=== PATIENT | female | born 1970 | race Caucasian/White ===

== ENCOUNTER 2023-01-30 13:57 | Observation (INO) | payer OTHER ==
[2023-01-30] MEDS ORDERED: ACETAMINOPHEN TAB 500 MG TAB PO STA (15:13)
[2023-01-30] MEDS ORDERED: SODIUM CHLORIDE 0.9% 500 ML 500 ML IV STA (15:13)
--- NOTE | 2023-01-30 15:18 | ED ---
General Adult HPI - General Source: patient Mode of arrival: ambulatory Limitations: no limitations <Jian Ferrer - Last Filed: 01/30/23 16:01> <Gen Perez - Last Filed: 01/30/23 23:40> - General Chief complaint: Upper Respiratory Infection Stated complaint: cough Time Seen by Provider: 01/30/23 15:03 - History of Present Illness Initial comments: 52-year-old woman presents to ED with chief complaint of cough. Patient states for the last 6 days has had URI symptoms. States that she has had cough inter mittently productive with green/brown sputum, sore throat, runny nose, congestion, headache, and diarrhea. States that she has been unable take OTC medications due to difficulties swallowing. However notes that she took a [place] earlier with relief of headache. No other complaints. (Jian Ferrer) This 52-year-old female presents with a complaint of a cough as well as some difficulty in breathing. She's had some moderate nasal congestion as well. Symptoms started approximately 1 week ago. She relates that she's been bringing up a significant amount of yellowish brownish production. She also relates that she's had nausea, vomiting, and diarrhea. She has not been able to keep any food or fluid down recently. The symptoms also started approximately 1 week ago. She states that she feels very weak and can barely walk across a room. She states that this is the most 6 she is ever felt in her entire life. She denies any previous similar incidents. She denies any known sick contacts. No other complaints or modifying factors. She denies any history of anemia. There is no loud in her stool or black tarry stools. (Gen Perez) - Related Data Home Medications Medication Instructions Recorded Confirmed Atorvastatin [Lipitor] 10 mg PO HS 01/30/23 01/30/23 Biotin 5 mg PO DAILY 01/30/23 01/30/23 Celecoxib [CeleBREX] 200 mg PO DAILY 01/30/23 01/30/23 Diclofenac Sodium [Voltaren] 75 mg PO BID-W/MEALS 01/30/23 01/30/23 Galcanezumab-Gnlm [Emgality Pen] 120 mg SQ Q30D 01/30/23 01/30/23 HYDROcodone/APAP 10-325MG [[place] 1 tab PO QID PRN 01/30/23 01/30/23 10-325] Lansoprazole [Prevacid] 15 mg PO DAILY 01/30/23 01/30/23 Metoprolol Succinate (ER) [Toprol 25 mg PO DAILY 01/30/23 01/30/23 Xl] Topiramate [Topamax] See Taper PO DIRECTED 01/30/23 01/30/23 tiZANidine [Zanaflex] 4 mg PO TID PRN 01/30/23 01/30/23 Allergies Allergy/AdvReac Type Severity Reaction Status Date / Time amoxicillin [From Amoxil] Allergy Itching Verified 01/30/23 19:13 Penicillins Allergy Itching Verified 01/30/23 19:13 Review of Systems ROS Other: All systems not noted in ROS Statement are negative. <Jian Ferrer - Last Filed: 01/30/23 16:01> ROS Other: All systems not noted in ROS Statement are negative. <Gen Perez - Last Filed: 01/30/23 23:40> ROS Statement: Those systems with pertinent positive or pertinent negative responses have been documented in the HPI. Past Medical History Past Medical History: Hypertension Additional Past Medical History / Comment(s): chronic back pain, chronic headaches History of Any Multi-Drug Resistant Organisms: None Reported Past Surgical History: Bariatric Surgery, Section, Cholecystectomy Past Psychological History: No Psychological Hx Reported Smoking Status: Former smoker Past Alcohol Use History: None Reported Past Drug Use History: Marijuana <Jian Ferrer - Last Filed: 01/30/23 16:01> General Exam Limitations: no limitations General appearance: alert, in no apparent distress Head exam: Present: atraumatic, normocephalic ENT exam: Present: mucous membranes moist, other (No significant tonsillar swell ing or exudate present. TMs clear and intact bilaterally.) Neck exam: Present: other (No significant lymphadenopathy.) Respiratory exam: Present: wheezes (Inspiratory wheezes in bilateral lung har[place]. Otherwise respiratory rate regular without accessory muscle use.) Cardiovascular Exam: Present: regular rate Neurological exam: Present: alert, oriented X3 Psychiatric exam: Present: normal affect, normal mood Skin exam: Present: warm, dry <Jian Ferrer - Last Filed: 01/30/23 16:01> <Gen Perez - Last Filed: 01/30/23 23:40> - General Exam Comments Initial Comments: GENERAL: The patient is well nourished and dehydrated. VITAL SIGNS: Heart rate, blood pressure, respiratory rate reviewed as recorded in nurse's notes. EYES: Pupils are round and reactive. Extraocular movements are intact. No conjunctival / lid redness or swelling. ENT: No external evidence of injury, swelling, or ecchymosis. Airway is patent. Throat is clear. Mucous membranes are dry. NECK: Nontender. No swelling or evidence of injury. No subcutaneous emphysema. Trachea is midline. No thyroid mass. HEART: Regular rate and rhythm. Good peripheral pulses. LUNGS/CHEST: Occasional wheezing noted bilaterally. No ecchymosis, subcutaneous emphysema, or tenderness. ABDOMEN: Abdomen soft without tenderness. No palpable masses or organomegaly. No peritoneal signs. No abdominal wall swelling or ecchymosis. EXTREMITIES: No extremity tenderness. Normal muscle tone and function. No thoracolumbar tenderness. NEUROLOGIC: Sensation is grossly intact. Cranial nerve exam reveals face is symmetrical, tongue is midline, speech is clear. SKIN: No abrasions or ecchymosis is noted. No induration or masses noted. PSYCHIATRIC: Alert and oriented. Appropriate behavior and judgment. (Gen Perez) Course Vital Signs 01/30/23 01/30/23 01/30/23 14:13 15:20 17:49 Temperature 99.9 F H 98.8 F Pulse Rate 80 Respiratory 20 16 Rate Blood Pressure 140/98 O2 Sat by Pulse 95 Oximetry 01/30/23 01/30/23 01/30/23 18:53 19:04 20:23 Temperature Pulse Rate 80 80 76 Respiratory 16 Rate Blood Pressure 176/79 O2 Sat by Pulse 99 Oximetry 01/30/23 20:34 Temperature 98.2 F Pulse Rate 76 Respiratory 16 Rate Blood Pressure 172/76 O2 Sat by Pulse 97 Oximetry Medical Decision Making <Jian Ferrer - Last Filed: 01/30/23 16:01> - Lab Data Result diagrams: 01/30/23 15:40 01/30/23 15:40 <Gen Perez - Last Filed: 01/30/23 23:40> - Medical Decision Making Was pt. sent in by a medical professional or institution (, PA, CLOTH WORKER, urgent care, hospital, or long term...) When possible be specific @ -[No] Did you speak to anyone other than the patient for history (EMS, parent, family, police, friend...)? What history was obtained from this source @ -[No] Did you review nursing and triage notes (agree or disagree)? Why? @ -[I reviewed and agree with nursing and triage notes] Were old charts reviewed (outside hosp., previous admission, EMS record, old EKG, old radiological studies, urgent care reports/EKG's, long term records)? Report findings @ -[No old charts were reviewed] Differential Diagnosis (chest pain, altered mental status, abdominal pain women, abdominal pain men, vaginal bleeding, weakness, fever, dyspnea, syncope, h eadache, dizziness, GI bleed, back pain, seizure, CVA, palpatations, mental health, musculoskeletal)? @ -Differential Fever: Pneumonia, viral URI, endocarditis, myocarditis, pericarditis, otitis, sinusitis, peritonsillar Abscess, retropharyngeal Abscess, epiglottitis, peritonitis, appendicitis, Hali cystitis, diverticulitis, hepatitis, colitis, UTI, PID, TOA, pyelonephritis, prostatitis, epididymitis, meningitis, encephalitis, pulmonary embolism, CVA, thyroid storm, pancreatitis, adrenal crisis, cavernous sinus thrombosis, this is not meant to be an all-inclusive list. EKG interpreted by me (3pts min.). @ -[As above] X-rays interpreted by me (1pt min.). @ -X-ray showed no acute process. CT interpreted by me (1pt min.). @ -[None done] U/S interpreted by me (1pt. min.). @ -[None done] What testing was considered but not performed or refused? (CT, X-rays, U/S, labs)? Why? @ -[None] What meds were considered but not given or refused? Why? @ -[None] Did you discuss the management of the patient with other professionals (professionals i.e. , PA, CLOTH WORKER, lab, RT, psych nurse, manager social work, clinical nurse reviewer, teacher, executive vice president and chief financial officer, assistant program manager)? Give summary @ -[No] Was smoking cessation discussed for >3mins.? @ -[No] Was critical care preformed (if so, how long)? @ -[No] Were there social determinants of health that impacted care today? How? (Homelessness, low income, unemployed, alcoholism, drug addiction, transportation, low edu. Level, literacy, decrease access to med. care, senior living, rehab)? @ -[No] Was there de-escalation of care discussed even if they declined (Discuss DNR or withdrawal of care, Hospice)? DNR status @ -[No] What co-morbidities impacted this encounter? (DM, HTN, Smoking, COPD, CAD, Cancer, CVA, ARF, Chemo, Hep., AIDS, mental health diagnosis, sleep apnea, morbid obesity)? @ -[None] (Jian Ferrer) The patient was seen and examined. All diagnostics were reviewed. The patient received IV fluids. She also received Zofran intravenously. DuoNeb breathing treatment is given. Solu-Medrol was given intravenously as well. Levaquin is given intravenously. Chest x-ray does not show any acute process per my interpretation. The laboratory shows evidence of anemia with hemoglobin at 9. The CO2 is low at 14 consistent with significant dehydration. Additional IV fluids are given. It is felt as though she likely does have a bronchitis as we ll as sinusitis and Levaquin is given intravenously. It is felt as though she is significantly dehydrated and would benefit from admission to the hospital for further treatment. She is agreeable with this plan. Case is discussed with internal medicine and they also are agreeable with the mission as an observation. (Gen Perez) - Lab Data Lab Results 01/30/23 01/30/23 01/30/23 Range/Units 15:40 15:40 15:40 WBC 7.7 (3.8-10.6) k/uL RBC 4.17 (3.80-5.40) m/uL Hgb 9.1 L (11.4-16.0) gm/dL Hct 30.5 L (34.0-46.0) % MCV 73.0 L (80.0-100.0) fL MCH 21.7 L (25.0-35.0) pg MCHC 29.8 L (31.0-37.0) g/dL RDW 19.2 H (11.5-15.5) % Plt Count 398 (150-450) k/uL MPV 9.0 Neutrophils % (Manual) 71 % Band Neuts % (Manual) 1 % Lymphocytes % (Manual) 18 % Monocytes % (Manual) 9 % Eosinophils % (Manual) 1 % Neutrophils # (Manual) 5.50 (1.3-7.7) k/uL Lymphocytes # (Manual) 1.39 (1.0-4.8) k/uL Monocytes # (Manual) 0.69 (0-1.0) k/uL Eosinophils # (Manual) 0.08 (0-0.7) k/uL Nucleated RBCs 0 (0-0) /100 WBC Manual Slide Review Performed Polychromasia Present Hypochromasia Marked Poikilocytosis Slight Anisocytosis Slight Microcytosis Moderate Sodium 138 (137-145) mmol/L Potassium 4.8 (3.5-5.1) mmol/L Chloride 108 H (98-107) mmol/L Carbon Dioxide 14 L (22-30) mmol/L Anion Gap 16 mmol/L BUN 14 (7-17) mg/dL Creatinine 0.67 (0.52-1.04) mg/dL Est GFR (CKD-EPI)AfAm >90 (>60 ml/min/1.73 sqM) Est GFR (CKD-EPI)NonAf >90 (>60 ml/min/1.73 sqM) Glucose 98 (74-99) mg/dL Calcium 8.8 (8.4-10.2) mg/dL Urine Color Light Yellow Urine Appearance Clear (Clear) Urine pH 7.0 (5.0-8.0) Ur Specific [place] 1.016 (1.001-1.035) Urine Protein Trace H (Negative) Urine Glucose (UA) Negative (Negative) Urine Ketones 3+ H (Negative) Urine Blood Negative (Negative) Urine Nitrite Negative (Negative) Urine Bilirubin Negative (Negative) Urine Urobilinogen <2.0 (<2.0) mg/dL Ur Leukocyte Esterase Negative (Negative) Influenza Type A (PCR) (Not Detectd) Influenza Type B (PCR) (Not Detectd) RSV (PCR) (Not Detectd) SARS-CoV-2 (PCR) (Not Detectd) 01/30/23 Range/Units 15:44 WBC (3.8-10.6) k/uL RBC (3.80-5.40) m/uL Hgb (11.4-16.0) gm/dL Hct (34.0-46.0) % MCV (80.0-100.0) fL MCH (25.0-35.0) pg MCHC (31.0-37.0) g/dL RDW (11.5-15.5) % Plt Count (150-450) k/uL MPV Neutrophils % (Manual) % Band Neuts % (Manual) % Lymphocytes % (Manual) % Monocytes % (Manual) % Eosinophils % (Manual) % Neutrophils # (Manual) (1.3-7.7) k/uL Lymphocytes # (Manual) (1.0-4.8) k/uL Monocytes # (Manual) (0-1.0) k/uL Eosinophils # (Manual) (0-0.7) k/uL Nucleated RBCs (0-0) /100 WBC Manual Slide Review Polychromasia Hypochromasia Poikilocytosis Anisocytosis Microcytosis Sodium (137-145) mmol/L Potassium (3.5-5.1) mmol/L Chloride (98-107) mmol/L Carbon Dioxide (22-30) mmol/L Anion Gap mmol/L BUN (7-17) mg/dL Creatinine (0.52-1.04) mg/dL Est GFR (CKD-EPI)AfAm (>60 ml/min/1.73 sqM) Est GFR (CKD-EPI)NonAf (>60 ml/min/1.73 sqM) Glucose (74-99) mg/dL Calcium (8.4-10.2) mg/dL Urine Color Urine Appearance (Clear) Urine pH (5.0-8.0) Ur Specific [place] (1.001-1.035) Urine Protein (Negative) Urine Glucose (UA) (Negative) Urine Ketones (Negative) Urine Blood (Negative) Urine Nitrite (Negative) Urine Bilirubin (Negative) Urine Urobilinogen (<2.0) mg/dL Ur Leukocyte Esterase (Negative) Influenza Type A (PCR) Not Detected (Not Detectd) Influenza Type B (PCR) Not Detected (Not Detectd) RSV (PCR) Not Detected (Not Detectd) SARS-CoV-2 (PCR) Not Detected (Not Detectd) Disposition <Jian Ferrer - Last Filed: 01/30/23 16:01> Is patient prescribed a controlled substance at d/c from ED?: No Time of Disposition: 18:12 Decision Date: 01/30/23 Decision Time: 18:12 <Gen Perez - Last Filed: 01/30/23 23:40> Clinical Impression: Dehydration, Anemia, Nausea and vomiting, Weakness, Diarrhea, Bronchitis, Sinusitis Disposition: ADMITTED IP TO THIS HOSP Condition: Fair
--- NOTE | 2023-01-30 15:57 | XR ---
EXAMINATION TYPE: XR chest 2V DATE OF EXAM: 01/30/2023 COMPARISON: None HISTORY: 52-year-old female with cough TECHNIQUE: PA and lateral views FINDINGS: Slightly low lung volumes and crowded vascular markings. Interstitial prominence is a chronic appeara nce. Heart upper limits of normal in size. Aorta and pulmonary vasculature within normal limits. No c onsolidation or pleural effusion. IMPRESSION: No definite acute process. Some hypoventilatory changes.
[2023-01-30 16:10] LABS: Anisocytosis Slight; HCT 30.5 % (34.0-46.0); HGB 9.1 gm/dL (11.4-16.0); Hypochromasia Marked; MCH 21.7 pg (25.0-35.0); MCHC 29.8 g/dL (31.0-37.0); Microcytosis Moderate; Platelet Count 398 k/uL (150-450); Poikilocytosis Slight; RBC 4.17 m/uL (3.80-5.40); RDW 19.2 % (11.5-15.5); WBC 7.7 k/uL (3.8-10.6)
[2023-01-30 16:11] LABS: African American GFR (CKD) >90 (>60 ml/min/1.73 sqM); Anion Gap 16 mmol/L; Blood Urea Nitrogen 14 mg/dL (7-17); Calcium 8.8 mg/dL (8.4-10.2); Carbon Dioxide 14 mmol/L (22-30); Chloride 108 mmol/L (98-107); Non-African American GFR(CKD) >90 (>60 ml/min/1.73 sqM); Potassium 4.8 mmol/L (3.5-5.1); Sodium 138 mmol/L (137-145)
[2023-01-30 16:13] LABS: Glucose 98 mg/dL (74-99)
[2023-01-30 16:35] LABS: Band Neutrophils % 1 %; Eosinophils # (M) 0.08 k/uL (0-0.7); Lymphocytes # (M) 1.39 k/uL (1.0-4.8); Monocytes # (M) 0.69 k/uL (0-1.0); Neutrophils % (M) 71 %; Nucleated Red Blood Cells 0 /100 WBC (0-0); Total Cells Counted 100
[2023-01-30 16:36] LABS: Polychromasia Present
[2023-01-30] MEDS ORDERED: SODIUM CHLORIDE 0.9% 1,000 ML IV STA (17:57)
[2023-01-30] MEDS ORDERED: methylPREDNISolone SOD SUCCI 125 MG/2 ML VIAL IV STA (18:09)
[2023-01-30] MEDS ORDERED: IPRATROPIUM-ALBUTEROL 3 ML NEB INHALATION STA (18:09)
[2023-01-30] MEDS ORDERED: LEVOFLOXACIN 750MG-D5W PMX 750 MG in DEXTROSE/WATER 1 150ML.BAG IVPB STA (18:10)
[2023-01-30 18:31] LABS: Appearance,Urine Clear (Clear); Bilirubin,Urine Negative (Negative); Blood,Urine Negative (Negative); Color,Urine Light Yellow; Glucose,Urine (UA) Negative (Negative); Ketones,Urine 3+ (Negative); Leukocyte Esterase,Urine Negative (Negative); Nitrite,Urine Negative (Negative); Protein,Urine Trace (Negative); Specific Gravity,Urine 1.016 (1.001-1.035); Urobilinogen,Urine <2.0 mg/dL (<2.0)
[2023-01-30] MEDS ORDERED: ACETAMINOPHEN TAB 325 MG TAB PO PRN (18:57)
[2023-01-30] MEDS ORDERED: METOCLOPRAMIDE 5 MG/ML 2 ML VIAL IVP PRN (19:01)
[2023-01-30] MEDS: PANTOPRAZOLE 40 MG/10 ML VIAL IV SCH (19:56)
[2023-01-30] MEDS: ENOXAPARIN 40 MG/0.4 ML SYRINGE SQ SCH (21:22)
[2023-01-30] MEDS: SODIUM CHLORIDE 0.9% 1,000 ML IV SCH (21:22)
[2023-01-30] MEDS ORDERED: methylPREDNISolone SOD SUCCI 125 MG/2 ML VIAL IV SCH (22:00)
[2023-01-30] MEDS: HYDROcodone/APAP 10-325MG 1 EACH TAB PO PRN (22:56)
[2023-01-30] MEDS: IPRATROPIUM-ALBUTEROL 3 ML NEB INHALATION SCH ×3 (23:13→23:17)
--- NOTE | 2023-01-31 00:32 | P.HPIM ---
History of Present Illness H&P Date: 01/30/23 The patient is a 52-year-old female with a PMH of hypertension and hyperlipidemia who presents to the emergency room with complaints of cough, sinus congestion, vomiting, and diarrhea. The patient reports that her symptoms initially started with sore throat and cough roughly one week ago. She then developed nausea with vomiting and diarrhea 2 days later which was persistent and debilitating. She reports being unable to tolerate any food or liquid as a result. The patient states that her sore throat and nausea has essentially resolved with the past 2-3 days but she continues to have loose bowel movements 2-3 per day. She also reports having minimal cough which is nonproductive. She states feeling really fatigued due to her decreased oral intake and not having the energy to do her ADLs. She denied experiencing fever, chest pain, shortness of breath. Denied abdominal pain. Denied gross abdominal bleeding or melena, or bleeding ulcer. Chest x-ray in the emergency room was unremarkable. Laboratory evaluation was remarkable for hemoglobin 9.1 with MCV 73, CO2 14, anion gap 16, with 3+ ketones on the UA. ED documentation reviewed and case discussed with ED provider. Review of systems: Pertinent positives and negatives as discussed in HPI, a complete review of systems was performed and all other systems are negative. Physical examination: Vital signs reviewed General: non toxic, no distress, appears at stated age, obese Derm: no unusual rashes/lesions, warm Head: atraumatic, normocephalic, symmetric Eyes: EOMI, no lid lag, anicteric sclera, pupils equal round reactive to light ENT: Nose and ears atraumatic Neck: No cervical lymphadenopathy, trachea midline, supple Mouth: no lip lesion, mucus membranes moist Cardiovascular: S1S2 reg, no murmur, positive dorsalis pedis pulse bilateral, no edema Lungs: CTA bilateral, no rhonchi, no rales, no accessory muscle use Abdominal: soft, nontender to palpation, no guarding Ext: muscle strength 5 out of 5 in all 4 extremities grossly, no gross muscle atrophy, no contractures, Neuro: CN II-XI grossly intact, no gross focal neuro deficits Psych: Alert, oriented, appropriate affect Assessment: Sore throat, diarrhea, vomiting, suspect secondary to viral syndrome, improving High anion gap metabolic acidosis likely secondary to starvation ketosis Microcytic anemia Imaging: Chest x-ray in the emergency room was unremarkable. Data Review: Laboratory evaluation was remarkable for hemoglobin 9.1 with MCV 73, CO2 14, anion gap 16, with 3+ ketones on the UA. Plan: Conservative management with IV fluids. Clear liquid diet Obtain fecal leukocytes Monitor BMP for resolution of acidosis Patient denying bleeding. No prior CBC available for comparison. Order iron panel DVT prophylaxis: Lovenox The patient is admitted with an anticipated less than 2 midnight stay for evaluation of diarrhea CODE STATUS: Full Code Discussed with: Patient Anticipated discharge place: Home Past Medical History Past Medical History: Hypertension Additional Past Medical History / Comment(s): chronic back pain, chronic headaches History of Any Multi-Drug Resistant Organisms: None Reported Past Surgical History: Bariatric Surgery, Section, Cholecystectomy Past Psychological History: No Psychological Hx Reported Smoking Status: Former smoker Past Alcohol Use History: None Reported Past Drug Use History: Marijuana - Past Family History Mother Family Medical History: Diabetes Mellitus Medications and Allergies Home Medications Medication Instructions Recorded Confirmed Type Atorvastatin [Lipitor] 10 mg PO HS 01/30/23 01/30/23 History Biotin 5 mg PO DAILY 01/30/23 01/30/23 History Celecoxib [CeleBREX] 200 mg PO DAILY 01/30/23 01/30/23 History Diclofenac Sodium [Voltaren] 75 mg PO BID-W/MEALS 01/30/23 01/30/23 History Galcanezumab-Gnlm [Emgality Pen] 120 mg SQ Q30D 01/30/23 01/30/23 History HYDROcodone/APAP 10-325MG [[place] 1 tab PO QID PRN 01/30/23 01/30/23 History 10-325] Lansoprazole [Prevacid] 15 mg PO DAILY 01/30/23 01/30/23 History Metoprolol Succinate (ER) [Toprol 25 mg PO DAILY 01/30/23 01/30/23 History Xl] Topiramate [Topamax] See Taper PO DIRECTED 01/30/23 01/30/23 History tiZANidine [Zanaflex] 4 mg PO TID PRN 01/30/23 01/30/23 History Allergies Allergy/AdvReac Type Severity Reaction Status Date / Time amoxicillin [From Amoxil] Allergy Itching Verified 01/30/23 19:13 Penicillins Allergy Itching Verified 01/30/23 19:13 Physical Exam Vitals: Vital Signs Temp Pulse Resp BP Pulse Ox 01/30/23 20:34 98.2 F 76 16 172/76 97 01/30/23 20:23 76 16 176/79 99 01/30/23 19:04 80 01/30/23 18:53 80 01/30/23 17:49 98.8 F 01/30/23 15:20 16 01/30/23 14:13 99.9 F H 80 20 140/98 95 Intake and Output 01/30/23 01/30/23 01/30/23 06:59 14:59 22:59 Other: Weight 104.326 kg Results CBC & Chem 7: 01/30/23 15:40 01/30/23 15:40 Labs: Abnormal Lab Results - Last 24 Hours (Table) 01/30/23 01/30/23 01/30/23 Range/Units 15:40 15:40 15:40 Hgb 9.1 L (11.4-16.0) gm/dL Hct 30.5 L (34.0-46.0) % MCV 73.0 L (80.0-100.0) fL MCH 21.7 L (25.0-35.0) pg MCHC 29.8 L (31.0-37.0) g/dL RDW 19.2 H (11.5-15.5) % Chloride 108 H (98-107) mmol/L Carbon Dioxide 14 L (22-30) mmol/L Urine Protein Trace H (Negative) Urine Ketones 3+ H (Negative)
[2023-01-31] MEDS: SODIUM CHLORIDE 0.9% 1,000 ML IV SCH ×3 (03:19→18:18)
[2023-01-31 06:54] LABS: Anisocytosis Slight; Basophils % (A) 0 %; Eosinophils % (A) 0 %; HCT 33.2 % (34.0-46.0); HGB 9.5 gm/dL (11.4-16.0); Hypochromasia Marked; Lymphocytes # (A) 1.1 k/uL (1.0-4.8); Lymphocytes % (A) 15 %; MCH 22.1 pg (25.0-35.0); MCHC 28.6 g/dL (31.0-37.0); Mean Platelet Volume 7.7; Microcytosis Moderate; Monocytes # (A) 0.2 k/uL (0-1.0); Monocytes % (A) 2 %; Neutrophils # (A) 6.1 k/uL (1.3-7.7); Neutrophils % (A) 82 %; Platelet Count 459 k/uL (150-450); Poikilocytosis Slight; RBC 4.31 m/uL (3.80-5.40); RDW 19.4 % (11.5-15.5); WBC 7.5 k/uL (3.8-10.6)
[2023-01-31 07:03] LABS: ALT 53 U/L (4-34); AST 43 U/L (14-36); African American GFR (CKD) >90 (>60 ml/min/1.73 sqM); Albumin 4.4 g/dL (3.5-5.0); Albumin/Globulin Ratio 1.1; Alkaline Phosphatase 159 U/L (38-126); Anion Gap 18 mmol/L; Blood Urea Nitrogen 9 mg/dL (7-17); Carbon Dioxide 11 mmol/L (22-30); Chloride 112 mmol/L (98-107); Glucose 212 mg/dL (74-99); Non-African American GFR(CKD) >90 (>60 ml/min/1.73 sqM); Potassium 4.3 mmol/L (3.5-5.1); Sodium 141 mmol/L (137-145); Total Bilirubin 0.3 mg/dL (0.2-1.3); Total Protein 8.4 g/dL (6.3-8.2)
[2023-01-31] MEDS: ENOXAPARIN 40 MG/0.4 ML SYRINGE SQ SCH (08:06)
[2023-01-31] MEDS: PANTOPRAZOLE 40 MG/10 ML VIAL IV SCH (08:06)
[2023-01-31] MEDS ORDERED: LEVOFLOXACIN 750MG-D5W PMX 750 MG in DEXTROSE/WATER 1 150ML.BAG IVPB SCH (09:00)
[2023-01-31] MEDS: ONDANSETRON 4 MG/2 ML VIAL IVP PRN (11:23)
--- NOTE | 2023-01-31 16:30 | P.PN ---
Subjective Progress Note Date: 01/31/23 Pt c/o some nausea. Stil lhas poor appetite. Gen: awake, alert HEENT: normocephalic, atraumatic, good hearing acuity, moist mucous membranes Resp: good air exchange, breathing comfortably with no accessory muscle use CVS: good distal perfusion x 4, GI: soft, NTTP, ND : no SPT, no CVAT, medrano catheter not present MSK: no pitting edema, no clubbing Neuro: non-focal, moving all extremities Psych: cooperative, euthymic mood Hospital course: The patient is a 52-year-old female with a PMH of hypertension and hyperlipidemia who presents to the emergency room with complaints of cough, sinus congestion, vomiting, and diarrhea. Chest x-ray in the emergency room was unremarkable. Laboratory evaluation was remarkable for hemoglobin 9.1 with MCV 73, CO2 14, anion gap 16, with 3+ ketones on the UA. Patient was admitted to observation and started on IV fluids for supportive care. She was also started on levofloxacin which was discontinued on day 2 of hospitalization. Assessment: Sore throat, diarrhea, vomiting, suspect secondary to viral syndrome, improving High anion gap metabolic acidosis likely secondary to starvation ketosis Microcytic anemia Plan: Today, patient is afebrile, 126/74, heart rate 74, 98% on room air. CBC demonstrates anemia of hemoglobin down to 9.5, thrombocytosis to 459 Chloride is 112, bicarb is 11 AST is 43, ALT is 53, alkaline phosphatase is 159, total protein is 8.4 Urine Legionella antigen was negative Continue patient on IV fluids at 130 mL per hour of normal saline Advance diet as tolerated Zofran 4 mg every 4 hours when necessary for nausea Patient is full code Objective - Vital Signs Vital signs: Vital Signs Temp 98.4 F 01/31/23 15:00 Pulse 74 01/31/23 15:00 Resp 16 01/31/23 15:00 BP 126/74 01/31/23 15:00 Pulse Ox 98 01/31/23 15:00 FiO2 Intake & Output 01/30/23 01/31/23 01/31/23 18:59 06:59 18:59 Weight 104.326 kg 104.326 kg Other: Voiding Method Toilet # Voids 1 3 - Labs CBC & Chem 7: 01/31/23 05:58 01/31/23 05:58 Labs: Abnormal Lab Results - Last 24 Hours (Table) 01/30/23 01/31/23 01/31/23 Range/Units 15:40 05:58 05:58 Hgb 9.5 L (11.4-16.0) gm/dL Hct 33.2 L (34.0-46.0) % MCV 77.0 L (80.0-100.0) fL MCH 22.1 L (25.0-35.0) pg MCHC 28.6 L (31.0-37.0) g/dL RDW 19.4 H (11.5-15.5) % Plt Count 459 H (150-450) k/uL Chloride 112 H (98-107) mmol/L Carbon Dioxide 11 L (22-30) mmol/L Glucose 212 H (74-99) mg/dL AST 43 H (14-36) U/L ALT 53 H (4-34) U/L Alkaline Phosphatase 159 H (38-126) U/L Total Protein 8.4 H (6.3-8.2) g/dL Urine Protein Trace H (Negative) Urine Ketones 3+ H (Negative)
[2023-01-31 17:37] LABS: Iron 20 UG/DL (50-170); Total Iron Binding Capacity 465 UG/DL (228-460)
[2023-01-31] MEDS: HYDROcodone/APAP 10-325MG 1 EACH TAB PO PRN (22:50)
[2023-02-01] MEDS: SODIUM CHLORIDE 0.9% 1,000 ML IV SCH ×2 (01:02→09:29)
[2023-02-01] MEDS: HYDROcodone/APAP 10-325MG 1 EACH TAB PO PRN ×2 (06:18→22:54)
[2023-02-01] MEDS: ENOXAPARIN 40 MG/0.4 ML SYRINGE SQ SCH (09:26)
[2023-02-01] MEDS: PANTOPRAZOLE 40 MG/10 ML VIAL IV SCH (09:26)
[2023-02-01] MEDS ORDERED: BENZOCAINE/MENTHOL LOZENG 1 EACH LOZENGE MUCOUS MEM PRN (14:29)
--- NOTE | 2023-02-01 14:42 | P.PN ---
Subjective Progress Note Date: 02/01/23 Pt c/o some nausea. Still has poor appetite. She complains of sore throat. Has not eaten much since admission. Gen: awake, alert HEENT: normocephalic, atraumatic, good hearing acuity, moist mucous membranes Resp: good air exchange, breathing comfortably with no accessory muscle use CVS: good distal perfusion x 4 GI: soft, NTTP, ND MSK: no pitting edema, no clubbing Neuro: non-focal, moving all extremities Psych: cooperative, euthymic mood Hospital course: The patient is a 52-year-old female with a PMH of hypertension and hyperlipidemia who presents to the emergency room with complaints of cough, sinus congestion, vomiting, and diarrhea. Chest x-ray in the emergency room was unremarkable. Laboratory evaluation was remarkable for hemoglobin 9.1 with MCV 73, CO2 14, anion gap 16, with 3+ ketones on the UA. Patient was admitted to observation and started on IV fluids for supportive care. She was also started on levofloxacin which was discontinued on day 2 of hospitalization. Assessment: Sore throat, diarrhea, vomiting, suspect secondary to viral syndrome, improving High anion gap metabolic acidosis likely secondary to starvation ketosis Microcytic anemia Plan: Check group A step Switch NS to D5 NS which should help with acidosis Repeat BMP tomorrow morning Advance diet as tolerated Zofran 4 mg every 4 hours when necessary for nausea Anticipate DC in 1-2 days. Patient is full code Objective - Vital Signs Vital signs: Vital Signs Temp 98.1 F 02/01/23 14:11 Pulse 75 02/01/23 14:11 Resp 16 02/01/23 14:11 BP 145/77 02/01/23 14:11 Pulse Ox 100 02/01/23 14:11 FiO2 Intake & Output 01/31/23 02/01/23 02/01/23 18:59 06:59 18:59 Other: Voiding Method Toilet Toilet # Voids 3 2 4 - Labs CBC & Chem 7: 01/31/23 05:58 01/31/23 05:58 Labs: Abnormal Lab Results - Last 24 Hours (Table) 01/31/23 Range/Units 05:58 Iron 20 L (50-170) UG/DL TIBC 465 H (228-460) UG/DL % Saturation 4.30 L (12.00-45.00) Microbiology - Last 24 Hours (Table) 01/30/23 18:57 Blood Culture - Preliminary Blood 01/30/23 18:32 Blood Culture - Preliminary Blood
[2023-02-01] MEDS: DEXTROSE 5%-0.9% NACL 1,000 ML IV SCH (14:56)
[2023-02-02] MEDS: DEXTROSE 5%-0.9% NACL 1,000 ML IV SCH ×2 (01:35→09:07)
[2023-02-02 06:41] LABS: African American GFR (CKD) >90 (>60 ml/min/1.73 sqM); Anion Gap 12 mmol/L; Blood Urea Nitrogen 7 mg/dL (7-17); Calcium 8.4 mg/dL (8.4-10.2); Carbon Dioxide 16 mmol/L (22-30); Chloride 113 mmol/L (98-107); Glucose 155 mg/dL (74-99); Non-African American GFR(CKD) >90 (>60 ml/min/1.73 sqM); Potassium 3.9 mmol/L (3.5-5.1); Sodium 141 mmol/L (137-145)
[2023-02-02 08:51] VITALS: BP 119/76; PULSE 74; RESP 16; TEMP 97.5
[2023-02-02] MEDS: ENOXAPARIN 40 MG/0.4 ML SYRINGE SQ SCH (09:06)
[2023-02-02] MEDS: PANTOPRAZOLE 40 MG/10 ML VIAL IV SCH (09:06)
[2023-02-02] MEDS: ONDANSETRON 4 MG/2 ML VIAL IVP PRN (09:27)
--- NOTE | 2023-02-02 11:41 | P.DS ---
Providers Date of admission: 01/30/23 19:02 Expected date of discharge: 02/02/23 Attending physician: Jayshree Delaney DO Primary care physician: Physician Nonstaff Hospital Course: Assessment: Sore throat, diarrhea, vomiting, suspect secondary to viral syndrome, improving High anion gap metabolic acidosis likely secondary to starvation ketosis Microcytic anemia Hospital course: The patient is a 52-year-old female with a PMH of hypertension and hyperlipidemia who presents to the emergency room with complaints of cough, sinus congestion, vomiting, and diarrhea. Chest x-ray in the emergency room was unremarkable. Laboratory evaluation was remarkable for hemoglobin 9.1 with MCV 73, CO2 14, anion gap 16, with 3+ ketones on the UA. Patient was admitted to observation and started on IV fluids for supportive care. She was also started on levofloxacin which was discontinued on day 2 of hospitalization. She did have dehydration and acidosis from starvation and poor by mouth intake. She was briefly started on a bicarb drip and improved quickly. She was able tolerate additional by mouth as of morning of discharge on 02/02. He was instructed to follow-up with primary care physician. I spent 34 minutes corrugating this discharge on 02/02 Gen: awake, alert HEENT: normocephalic, atraumatic, good hearing acuity, moist mucous membranes Resp: good air exchange, breathing comfortably with no accessory muscle use CVS: good distal perfusion x 4, GI: soft, NTTP, ND : no SPT, no CVAT, medrano catheter not present MSK: no pitting edema, no clubbing Neuro: non-focal, moving all extremities Psych: cooperative, euthymic mood Patient Condition at Discharge: Good Plan - Discharge Summary New Discharge Prescriptions: Continue Galcanezumab-Gnlm [Emgality Pen] 120 mg SQ Q30D tiZANidine [Zanaflex] 4 mg PO TID PRN PRN Reason: Muscle Spasm HYDROcodone/APAP 10-325MG [Beverly 10-325] 1 tab PO QID PRN PRN Reason: Pain Lansoprazole [Prevacid] 15 mg PO DAILY Diclofenac Sodium [Voltaren] 75 mg PO BID-W/MEALS Metoprolol Succinate (ER) [Toprol XL] 25 mg PO DAILY Celecoxib [CeleBREX] 200 mg PO DAILY Atorvastatin [Lipitor] 10 mg PO HS Topiramate [Topamax] See Taper PO DIRECTED Biotin 5 mg PO DAILY Discharge Medication List Atorvastatin [Lipitor] 10 mg PO HS 01/30/23 [History] Biotin 5 mg PO DAILY 01/30/23 [History] Celecoxib [CeleBREX] 200 mg PO DAILY 01/30/23 [History] Diclofenac Sodium [Voltaren] 75 mg PO BID-W/MEALS 01/30/23 [History] Galcanezumab-Gnlm [Emgality Pen] 120 mg SQ Q30D 01/30/23 [History] HYDROcodone/APAP 10-325MG [Beverly 10-325] 1 tab PO QID PRN 01/30/23 [History] Lansoprazole [Prevacid] 15 mg PO DAILY 01/30/23 [History] Metoprolol Succinate (ER) [Toprol XL] 25 mg PO DAILY 01/30/23 [History] Topiramate [Topamax] See Taper PO DIRECTED 01/30/23 [History] tiZANidine [Zanaflex] 4 mg PO TID PRN 01/30/23 [History] Follow up Appointment(s)/Referral(s): Nonstaff,Physician [Primary Care Provider] - 1-2 days Discharge Disposition: HOME SELF-CARE
== END 2023-02-02 15:03 | disposition home or self-care (01) ==
LOC: EC 13:57 → 6NMEDSUR 19:02
PROVIDERS: ADMIT Internal Medicine; ATTEND Internal Medicine
DX: J02.9 Acute pharyngitis, unspecified (principal); R19.7 Diarrhea, unspecified; R11.2 Nausea with vomiting, unspecified; E87.20 Acidosis, unspecified; R09.81 Nasal congestion; D50.9 Iron deficiency anemia, unspecified; E78.5 Hyperlipidemia, unspecified; I10 Essential (primary) hypertension; E86.0 Dehydration; R63.0 Anorexia; R05.9 Cough, unspecified; G89.29 Other chronic pain; M54.9 Dorsalgia, unspecified; R51.9 Headache, unspecified; Z79.1 Long term (current) use of non-steroidal anti-inflammatories (NSAID); Z79.899 Other long term (current) drug therapy; Z88.0 Allergy status to penicillin; Z98.84 Bariatric surgery status; Z98.891 History of uterine scar from previous surgery; Z90.49 Acquired absence of other specified parts of digestive tract; Z87.891 Personal history of nicotine dependence; Z83.3 Family history of diabetes mellitus; Z88.1 Allergy status to other antibiotic agents
CPT/HCPCS: 96376 ×3; 96361 ×4; 96372 ×4; 96375 ×2; 96374; 99284; 36415; 94640 ×2; 87651; 80053; 80048 ×2; 87449; 82728; 83540; 83550; 85025 ×2; 81003; 87040; 83630; 87636; 71046; G0378 ×4; J2930; J2405 ×2; J1650 ×4; J1956; C9113 ×4